=== PATIENT | male | born 2000 | race Caucasian/White ===

== ENCOUNTER 2019-01-14 11:05 | Emergency (ER) | payer BC, OTHER ==
[2019-01-14] MEDS: DEXAMETHASONE 10 MG/ML 1 ML INJ IM (12:08)
[2019-01-14] MEDS: METHOCARBAMOL 750 MG TAB PO (12:08)
[2019-01-14] MEDS: KETOROLAC 30 MG INJ IM (12:09)
== END 2019-01-14 12:50 | disposition home or self-care (01) ==
LOC: FTE 11:05
DX: S39.92XA Unspecified injury of lower back, initial encounter (principal); J45.909 Unspecified asthma, uncomplicated; X50.0XXA Overexertion from strenuous movement or load, initial encounter; Y92.9 Unspecified place or not applicable
CPT/HCPCS: 72100; 96372; 99284-25